=== PATIENT | female | born 1950 | race Caucasian/White ===

== ENCOUNTER → 2016-08-29 | Outpatient (CLI) | payer MEDICARE, OTHER ==
[2016-08-29 12:04] LABS: CHLORIDE,CL 107 mmol/L (98-110); SODIUM,NA 144 mmol/L (136-146)
== END | disposition home or self-care (01) ==
LOC: MW.CHRC 11:09
PROVIDERS: ATTEND Family Medicine
DX: R31.9 Hematuria, unspecified (principal); D53.9 Nutritional anemia, unspecified
CPT/HCPCS: 36415; 80053; 81001; 82607; 82746; 85025; 99203

== ENCOUNTER → 2016-09-04 | Outpatient (CLI) | payer MEDICARE, OTHER | LOC: MW.CHUR 08:00 | PROVIDERS: ATTEND Urology | DX: R31.9 Hematuria, unspecified (principal) | CPT/HCPCS: 52000; 99202 ==

== ENCOUNTER → 2016-09-13 | Outpatient (CLI) | payer MEDICARE, OTHER | END | disposition home or self-care (01) | LOC: MW.CHIM 10:46 | PROVIDERS: ATTEND Internal Medicine | DX: N20.0 Calculus of kidney (principal) | CPT/HCPCS: 81001; 99214 ==

== ENCOUNTER → 2016-09-18 | Outpatient (CLI) | payer MEDICARE, OTHER ==
--- NOTE | 2016-09-18 13:39 | US ---
EXAM DATE: 09/13/16 PATIENT'S AGE: 66 Patient: BHANU HARDEN Facility: [place], [place] Site . Site : 1950 Study: US Abdomen [id number]/24/2017 11:25:09 AM Ordering Physician: Mary Norton Final Report: HISTORY: Left kidney stone. Comparison: None. Technique: Retroperitoneal ultrasound of the kidneys and urinary bladder. Findings: The right kidney measures 10.6 x 4.4 x 4.9 cm. There is no hydronephrosis or solid mass. There is no perinephric fluid collection. The left kidney measures 10.0 x 4.9 x 4.6 cm. No hydronephrosis or solid mass. No perinephric fluid collection. Probable benign cyst about the left renal cortex, measuring 0.8 x 0.8 x 0.5 cm. Non shadowing calculus is suspected in the left intrarenal collecting system measuring 5 mm. Urinary bladder is not distended, measuring 3.7 x 2.6 x 5.6 cm. Left ureteral jet is visualized. A right ureteral jet is not seen. This is more likely technical in nature, given the absence of hydronephrosis. There is postvoid residual in the urinary bladder. Prior to voiding, the bladder measures 3.7 x 2.6 x 5.6 cm, corresponding to a volume of 28 cc. After voiding, it measures 1.4 x 2.5 x 4.5 cm. This corresponds to a volume of 23.7 cc. Impression: 1. Suspected nonobstructive calculus in the left intrarenal collecting system. 2. Benign left renal cyst. 3. No solid renal mass, hydronephrosis, or perinephric fluid collection. Dictated by Macario Alberto MD @ Sep 18 2016 12:48PM (Electronic Signature) Report Signed by Proxy and Original Signed Document filed in the Medical Record. MTDD
== END | disposition home or self-care (01) ==
LOC: MW.US 08:59
PROVIDERS: ATTEND Internal Medicine
DX: N20.0 Calculus of kidney (principal); Q61.01 Congenital single renal cyst
CPT/HCPCS: 76775; 76775-26

== ENCOUNTER → 2016-09-25 | Outpatient (CLI) | payer MEDICARE, OTHER | LOC: MW.CHIM 08:00 | PROVIDERS: ATTEND Internal Medicine | DX: N23 Unspecified renal colic (principal); N30.10 Interstitial cystitis (chronic) without hematuria; M54.9 Dorsalgia, unspecified; M54.2 Cervicalgia | CPT/HCPCS: 99214 ==